=== PATIENT | female | born 1965 | race Asian ===

== ENCOUNTER → 2016-12-31 | Outpatient (CLI) | payer OTHER | END | disposition home or self-care (01) | LOC: CFH 11:15 | PROVIDERS: ATTEND Internal Medicine | DX: Z12.31 Encounter for screening mammogram for malignant neoplasm of breast (principal) | CPT/HCPCS: G0202 ==

== ENCOUNTER 2018-05-29 03:10 | Emergency (ER) | payer MEDICAID, OTHER ==
[~2018-05-29] VITALS: Ht 157.5 cm; Wt 83.6 kg
[2018-05-29] MEDS ORDERED: ONDANSETRON 2MG/ML, 2ML ONE (03:39)
[2018-05-29] MEDS ORDERED: MORPHINE SULFATE 4 MG/ML, 1ML ONE (03:39)
[2018-05-29 03:49] LABS: BASOPHILS # (AUTO) 0.02 x10^3/uL (0-0.1); BASOPHILS % (AUTO) 0 % (0-1); EOSINOPHILS % (AUTO) 2 % (1-7); LYMPHOCYTES # (AUTO) 1.24 x10^3/uL (1-3.4); LYMPHOCYTES % (AUTO) 12 % (22-44); MD NO; MEAN CORPUSCULAR HEMOGLOBIN 26.8 pg (27.0-34.8); MEAN CORPUSCULAR HGB CONC 33.2 g/dL (32.4-35.8); MEAN CORPUSCULAR VOLUME 80.7 fL (80-100); MEAN PLATELET VOLUME 7.7 fL (7.4-10.4); MONOCYTES # (AUTO) 0.52 x10^3/uL (0.2-0.8); MONOCYTES % (AUTO) 5 % (2-9); NEUTROPHILS # (AUTO) 8.71 x10^3/uL (1.8-6.8); NEUTROPHILS % (AUTO) 81 % (42-75); PLATELET COUNT 353 x10^3/uL (130-400); RED BLOOD COUNT 4.56 x10^6/uL (3.82-5.3); RED CELL DISTRIBUTION WIDTH 18.3 % (9.6-15.2)
--- NOTE | 2018-05-29 03:52 | NUR ---
PT IN [facility]; US AT BEDSIDE. LABS DRAWN. IV ACCESS ESTABLISHED. PT MEDICATED PER MAR FOR PAIN AND NAUSEA. PT DENIES ANY OTHER NEEDS AT THIS TIME. CALL LIGHT IS WITHIN REACH.
[2018-05-29 03:59] LABS: ALANINE AMINOTRANSFERASE 46 U/L (12-78); ALBUMIN 3.5 g/dL (3.4-5.0); ANION GAP 7 mmol/L (5-15); CALCIUM 8.7 mg/dL (8.5-10.1); CHLORIDE 107 mmol/L (98-107); CREATININE 0.81 mg/dL (0.55-1.02)
[2018-05-29] MEDS ORDERED: ONDANSETRON 2MG/ML, 2ML IVPush ONE (04:00)
[2018-05-29] MEDS ORDERED: MORPHINE SULFATE 4 MG/ML, 1ML IVPush PRN (04:00)
[2018-05-29 04:02] LABS: ALKALINE PHOSPHATASE 86 U/L (45-117); BILIRUBIN,TOTAL 0.1 mg/dL (0.2-1.0); TOTAL PROTEIN 7.8 g/dL (6.4-8.2)
--- NOTE | 2018-05-29 04:34 | NUR ---
ct pending negative hcg.
[2018-05-29 04:54] LABS: CULTURE INDICATED? YES; MICROSCOPIC INDICATED
[2018-05-29 05:22] VITALS: BP 156/73
[2018-05-29] MEDS ORDERED: KETOROLAC 30 MG/1 ML ONE (06:28)
[2018-05-29] MEDS ORDERED: CEFTRIAXONE PMX 1GM/50ML 50 ML ONE (06:29)
[2018-05-29] MEDS ORDERED: CEFTRIAXONE PMX 1GM/50ML 50 ML IV ONE (06:30)
[2018-05-29] MEDS ORDERED: KETOROLAC 30 MG/1 ML IVPush ONE (06:30)
--- NOTE | 2018-05-29 06:35 | NUR ---
PT MEDICATED PER MAR.
--- NOTE | 2018-05-29 07:06 | NUR ---
BS REPORT OF PT TO SARAH MAYORGA, AND ASSUMING CARE OF PT.
--- NOTE | 2018-05-29 07:10 | NUR ---
REPORT RECEIVED from SARAH Meza, patient is safe in bed, abx finished, patient disconnected from medical devices, will get dressed and bed discharged soon.
--- NOTE | 2018-05-29 07:58 | NUR ---
DISCHARGE INSTRUCTIONS REVIEWED, VSS ON ROOM AIR, NO DISTRESS, ABX FINISHED, PATIENT AMBULATORY TO DISCHARGE DESK ACCOMPANIED BY BOYFRIEND.
== END 2018-05-29 07:59 | disposition home or self-care (01) ==
LOC: ED 03:37
DX: N30.01 Acute cystitis with hematuria (principal); N20.2 Calculus of kidney with calculus of ureter; I10 Essential (primary) hypertension
CPT/HCPCS: 36415; 74176; 76700; 80053; 81001; 81025; 83690; 85025; 87077; 87086; 87186; 96365; 96375; 99284; J0696; J1885; J2405